=== PATIENT | female | born 2000 | race American Indian/Alaskan Native ===

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

== ENCOUNTER 2021-04-02 21:05 | Emergency (ER) | payer MEDICAID | END 2021-04-02 22:15 | disposition left against medical advice (07) | LOC: DL.ED 21:05 | DX: L23.7 Allergic contact dermatitis due to plants, except food (principal); Z53.21 Procedure and treatment not carried out due to patient leaving prior to being seen by health care provider ==

== ENCOUNTER 2021-04-17 22:03 | Emergency (ER) | payer MEDICAID ==
[2021-04-17 21:54] VITALS: BP 137/86; PULSE 95
[2021-04-17] MEDS ORDERED: Iopamidol 612 MG/ML 100 ML Bottle IVPUSH ONE (22:19)
[2021-04-17] MEDS ORDERED: Iopamidol 612 MG/ML 50 ML SDV IVPUSH ONE (22:19)
[2021-04-17] MEDS ORDERED: Azithromycin 250 MG Tab PO ONE (22:21)
[2021-04-17] MEDS ORDERED: cefTRIAXone 1 GM in Sodium Chloride 0.9% 50 ML IV ONE (22:21)
[2021-04-17 22:50] LABS: ACETAMINOPHEN 0 ug/mL (10-30 (Therapeutic)); ANION GAP 17.3 mEq/L (7-13); CHLORIDE,CL 104 mmol/L (98-107); SODIUM,NA 140 mmol/L (136-145)
[2021-04-17 23:05] LABS: AMPHETAMINES,URINE POSITIVE (NEGATIVE); BARBITURATES,URINE NEGATIVE (NEGATIVE); BENZODIAZEPINE,URINE NEGATIVE (NEGATIVE); MDMA (ECSTASY), URINE POSITIVE (NEGATIVE); METHADONE,URINE NEGATIVE (NEGATIVE); METHAMPHETAMINES,URINE POSITIVE (NEGATIVE); OPIATES,URINE POSITIVE (NEGATIVE); OXYCODONE,URINE NEGATIVE (NEGATIVE); PHENCYCLIDINE,URINE NEGATIVE (NEGATIVE); TCA,URINE NEGATIVE (NEGATIVE)
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
[2021-04-17] MEDS ORDERED: Acetaminophen 325 MG Tab PO ONE (23:51)
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
[2021-04-19 14:48] LABS: C.TRACHOMATIS BY TMA Positive (Negative); N.GONORRHOEAE BY TMA Negative (Negative)
== END 2021-04-18 00:17 | disposition home or self-care (01) ==
LOC: EDSEX → EDBD → DL.ED 22:03 → MERGE 22:03 → DL.ED 04-18 00:17
DX: S50.12XA Contusion of left forearm, initial encounter (principal); S40.012A Contusion of left shoulder, initial encounter; S00.83XA Contusion of other part of head, initial encounter; S90.01XA Contusion of right ankle, initial encounter; R82.5 Elevated urine levels of drugs, medicaments and biological substances; Z72.0 Tobacco use; Y04.2XXA Assault by strike against or bumped into by another person, initial encounter
CPT/HCPCS: 36415; 70450; 71260; 72125; 73600; 74177; 80053; 80143; 80179; 80305; 80307; 81001; 84703; 85025; 87491; 87591; 96365; 99285; A9270; J0696; Q9967

== ENCOUNTER 2022-08-11 19:26 | Emergency (ER) | payer MEDICAID ==
[2022-08-11] MEDS ORDERED: Nitrofurantoin Monohydrate/Macrocrystalline 100 MG Cap PO ONE ×2 (19:27→20:35)
[2022-08-11 20:38] VITALS: BP 146/82; PULSE 101
[2022-08-11] MEDS ORDERED: Nitrofurantoin Monohydrate/Macrocrystalline 100 MG Cap ONE (20:53)
[2022-08-15 14:47] LABS: C.TRACHOMATIS BY TMA Negative (Negative); N.GONORRHOEAE BY TMA Negative (Negative)
== END 2022-08-11 21:10 | disposition home or self-care (01) ==
LOC: DL.ED 19:26
DX: N39.0 Urinary tract infection, site not specified (principal); A64 Unspecified sexually transmitted disease; E11.9 Type 2 diabetes mellitus without complications; E66.9 Obesity, unspecified; Z68.30 Body mass index [BMI] 30.0-30.9, adult
CPT/HCPCS: 36415; 81001; 81025; 87086; 87491; 87563; 87591; 99283; A9270

== ENCOUNTER 2022-11-03 09:36 | Emergency (ER) | payer MEDICAID ==
[2022-11-03] MEDS ORDERED: Sodium Chloride 0.9% 1,000 ML IV ONE (09:48)
[2022-11-03] MEDS ORDERED: Morphine 4 MG/ML Syringe IVPUSH ONE (09:53)
[2022-11-03] MEDS ORDERED: Ondansetron 4 MG/2 ML SDV IVPUSH ONE (09:53)
[2022-11-03 10:21] LABS: ANION GAP 16.4 mEq/L (7-13); CHLORIDE,CL 104 mmol/L (98-107); ESTIMATED GFR 112 mL/min (>=60); SODIUM,NA 140 mmol/L (136-145)
[2022-11-03 10:27] VITALS: BP 130/95; PULSE 89
[2022-11-03] MEDS ORDERED: Iopamidol 612 MG/ML 100 ML Bottle IVPUSH ONE (11:06)
== END 2022-11-03 13:09 | disposition home or self-care (01) ==
LOC: DL.ED 09:36
DX: K29.20 Alcoholic gastritis without bleeding (principal); E11.9 Type 2 diabetes mellitus without complications; E66.9 Obesity, unspecified; Z68.30 Body mass index [BMI] 30.0-30.9, adult
CPT/HCPCS: 36415; 74177; 80053; 80307; 81001; 82947; 83690; 84703; 85025; 85610; 96361; 96374; 96375; 99284; J2270; J2405; J7030; Q9967

== ENCOUNTER 2023-01-23 01:15 | Emergency (ER) | payer MEDICAID ==
[2023-01-23 01:45] LABS: APPEARANCE,URINE CLEAR (CLEAR); BILIRUBIN,URINE NEGATIVE (NEGATIVE); COLOR,URINE YELLOW (YELLOW); GLUCOSE,URINE >=1000 (NEGATIVE); KETONES,URINE NEGATIVE (NEGATIVE); LEUKOCYTE ESTERASE,URINE NEGATIVE (NEGATIVE); NITRITE,URINE NEGATIVE (NEGATIVE); OCCULT BLOOD,URINE LARGE (NEGATIVE); PROTEIN,URINE NEGATIVE (NEGATIVE)
[2023-01-23 01:59] LABS: AMORPHOUS SEDIMENT,URINE FEW /HPF (NOT SEEN); BACTERIA,URINE MODERATE /HPF (0-FEW/HPF); EPITHELIAL CELLS,URINE MANY /HPF (NOT SEEN); MUCUS,URINE MODERATE /LPF (NOT SEEN); WBC,URINE 0-5 /HPF (0-5/HPF)
[2023-01-23] MEDS ORDERED: Orphenadrine 60 MG/2 ML Inj IM ONE (02:18)
[2023-01-23] MEDS ORDERED: Ketorolac 30 MG/ML SDV IM ONE (02:18)
[2023-01-23 02:56] VITALS: BP 132/92; PULSE 95
== END 2023-01-23 02:52 | disposition home or self-care (01) ==
LOC: DL.ED 01:15
DX: M54.50 Low back pain, unspecified (principal); E11.9 Type 2 diabetes mellitus without complications; E66.9 Obesity, unspecified; Z68.39 Body mass index [BMI] 39.0-39.9, adult
CPT/HCPCS: 74176; 81001; 81025; 96372; 99283; 99284; J1885; J2360

== ENCOUNTER 2023-06-09 03:11 | Emergency (ER) | payer MEDICAID, OTHER ==
[2023-06-09 03:36] LABS: APPEARANCE,URINE CLEAR (CLEAR); BILIRUBIN,URINE NEGATIVE (NEGATIVE); COLOR,URINE YELLOW (YELLOW); GLUCOSE,URINE NEGATIVE (NEGATIVE); KETONES,URINE NEGATIVE (NEGATIVE); LEUKOCYTE ESTERASE,URINE NEGATIVE (NEGATIVE); NITRITE,URINE NEGATIVE (NEGATIVE); OCCULT BLOOD,URINE MODERATE (NEGATIVE); PROTEIN,URINE NEGATIVE (NEGATIVE)
[2023-06-09 03:43] LABS: BACTERIA,URINE FEW /HPF (0-FEW/HPF); EPITHELIAL CELLS,URINE FEW /HPF (NOT SEEN); WBC,URINE 0-5 /HPF (0-5/HPF)
[2023-06-09 03:44] LABS: AMORPHOUS SEDIMENT,URINE FEW /HPF (NOT SEEN); MUCUS,URINE FEW /LPF (NOT SEEN)
[2023-06-09 03:54] VITALS: BP 144/78; PULSE 86
== END 2023-06-09 04:26 | disposition home or self-care (01) ==
LOC: DL.ED 03:11
DX: R30.0 Dysuria (principal); E10.9 Type 1 diabetes mellitus without complications; E66.9 Obesity, unspecified; F17.210 Nicotine dependence, cigarettes, uncomplicated; Z68.35 Body mass index [BMI] 35.0-35.9, adult
CPT/HCPCS: 81001; 99283

== ENCOUNTER 2023-12-02 20:33 | Emergency (ER) | payer MEDICAID ==
[2023-12-02] MEDS: cefTRIAXone 1 GM, Lidocaine 1% 2.1 ML IM ONE (20:48)
[2023-12-02] MEDS: Lidocaine 1% 5 ML VIAL INJECT ONE (20:49)
[2023-12-02] MEDS: Clindamycin HCl 150 MG Cap PO ONE (20:49)
[2023-12-02 21:06] VITALS: BP 132/84; PULSE 134
[2023-12-02] MEDS: Acetaminophen/oxyCODONE 325-5 MG Tab PO ONE (21:12)
[2023-12-02] MEDS: Doxycycline Monohydrate 100 MG Cap PO ONE (21:14)
== END 2023-12-02 21:34 | disposition home or self-care (01) ==
LOC: DL.ED 20:33
DX: L02.415 Cutaneous abscess of right lower limb (principal); L03.115 Cellulitis of right lower limb; L73.2 Hidradenitis suppurativa; E66.9 Obesity, unspecified; E10.9 Type 1 diabetes mellitus without complications; Z68.34 Body mass index [BMI] 34.0-34.9, adult; Z79.899 Other long term (current) drug therapy; Z86.19 Personal history of other infectious and parasitic diseases
CPT/HCPCS: 10060; 87070; 87077; 87186; 96372; 99283; 99283-25; A9270-GY; J0696; J3490

== ENCOUNTER 2024-08-22 23:35 | Emergency (ER) | payer MEDICAID ==
[2024-08-22 23:54] VITALS: BP 125/84; PULSE 112
[2024-08-23] MEDS: Ketorolac 30 MG/ML SDV IM ONE (00:02)
[2024-08-23] MEDS: Take Home: Cyclobenzaprine 10 MG Tab, 4 Tab Pack PO ONE (00:07)
== END 2024-08-23 00:17 | disposition home or self-care (01) ==
LOC: DL.ED 23:35
DX: M46.1 Sacroiliitis, not elsewhere classified (principal); M62.830 Muscle spasm of back; E10.9 Type 1 diabetes mellitus without complications; Z79.4 Long term (current) use of insulin; Z79.899 Other long term (current) drug therapy
CPT/HCPCS: 96372; 99283; A9270-GY; J1885

== ENCOUNTER 2025-03-26 16:51 | Emergency (ER) | payer MEDICAID ==
[2025-03-26] MEDS: Ketorolac 30 MG/ML SDV IM ONE (19:06)
[2025-03-26 19:07] VITALS: BP 128/76; PULSE 76
== END 2025-03-26 19:16 | disposition home or self-care (01) ==
LOC: DL.ED 16:51
DX: M54.6 Pain in thoracic spine (principal); E10.9 Type 1 diabetes mellitus without complications; Z79.4 Long term (current) use of insulin; Z79.899 Other long term (current) drug therapy
CPT/HCPCS: 96372; 99283; A9270; J1885